=== PATIENT | male | born 1985 | race Caucasian/White ===

== ENCOUNTER 2020-11-03 08:13 | Day surgery (SDC) | payer OTHER ==
[2020-11-01 15:51] VITALS: BMI 28.7
[~2020-11-03 08:13] MED LIST: LACTATED RINGERS 1,000 ML IV SCH
[2020-11-03 08:44] VITALS: TEMP 97.8
[2020-11-03] MEDS ORDERED: LACTATED RINGERS 1,000 ML IV ONE (08:44)
[2020-11-03] MEDS ORDERED: PROPOFOL 10 MG/ML 20 ML VIAL IV ONE (08:58)
[2020-11-03] MEDS ORDERED: GLUCAGON 1 MG/ML VIAL ONE (08:58)
--- NOTE | 2020-11-03 09:03 | P.GSHP ---
History of Present Illness H&P Date: 11/03/20 Chief Complaint: Diarrhea Is a 35-year-old male who presents today for colonoscopy. Patient issues with diarrhea. States he has a 29 bowel movements per day. Past Medical History Past Medical History: Hyperlipidemia Additional Past Medical History / Comment(s): FREQ DIARRHEA FOR PAST FEW MONTHS History of Any Multi-Drug Resistant Organisms: None Reported Past Surgical History: Appendectomy, Orthopedic Surgery Additional Past Surgical History / Comment(s): LT ACL REPAIR Past Anesthesia/Blood Transfusion Reactions: No Reported Reaction Smoking Status: Vaper - Past Family History Mother Family Medical History: No Reported History Medications and Allergies Home Medications Medication Instructions Recorded Confirmed Type Atorvastatin [Lipitor] 10 mg PO HS 11/01/20 11/01/20 History Cholecalciferol [Vitamin D3 (25 25 mcg PO DAILY 11/01/20 11/01/20 History Mcg = 1000 Iu)] Allergies Allergy/AdvReac Type Severity Reaction Status Date / Time No Known Allergies Allergy Verified 11/01/20 15:42 Surgical - Exam Vital Signs Temp Pulse Resp BP Pulse Ox 97.8 F 71 18 133/79 97 11/03/20 08:43 11/03/20 08:43 11/03/20 08:43 11/03/20 08:43 11/03/20 08:43 - General well developed, well nourished, no distress - Eyes PERRL - ENT normal pinna - Neck no masses - Respiratory normal expansion - Cardiovascular Rhythm: regular - Abdomen Abdomen: soft, non tender Assessment and Plan Assessment: Diarrhea. We'll perform colonoscopy.
--- NOTE | 2020-11-03 09:18 | P.OP ---
Date of Procedure: 11/03/20 Preoperative Diagnosis: Diarrhea Postoperative Diagnosis: Colitis pathology pending Procedure(s) Performed: Colonoscopy Anesthesia: MAC Surgeon: Gerardo Donovan Pathology: other (Rectum) Condition: stable Disposition: PACU Description of Procedure: The patient was placed on the endoscopy table in the lateral position. He received IV sedation. Digital rectal exam was performed which revealed milligrams reflux" was then placed patient anus passed rotator entire colon. Ileocecal valve was visually. The cecum, ascending and transverse colon appeared normal. In the descending; there is no abdomen was seen. Scope was then brought back the rectum and this appeared normal however due the patient's symptoms of diarrhea a random rectal biopsies performed. Scope was withdrawn for patient.
[2020-11-03 09:25] VITALS: RESP 16
[2020-11-03 09:53] VITALS: BP 123/78; PULSE 67
== END 2020-11-03 10:02 | disposition home or self-care (01) ==
LOC: ORWHC2ENDO 08:13
PROVIDERS: ATTEND Surgery
DX: R19.7 Diarrhea, unspecified (principal); E78.5 Hyperlipidemia, unspecified; Z90.89 Acquired absence of other organs; Z98.890 Other specified postprocedural states; F17.290 Nicotine dependence, other tobacco product, uncomplicated; Z79.899 Other long term (current) drug therapy
CPT/HCPCS: 88305; 45380; J1610; J2704

== ENCOUNTER → 2021-06-06 | Outpatient (CLI) | payer BC ==
--- NOTE | 2021-06-06 16:07 | CT ---
EXAMINATION TYPE: CT angio chest DATE OF EXAM: 06/06/2021 COMPARISON: Radiographs 05/29/2021 HISTORY: 35-year-old male SOB, chest tightness TECHNIQUE: Contiguous axial scanning of the chest performed with IV Contrast, patient injected with 8 0 mL of Isovue 370. Coronal/sagittal MIP reconstructions performed. CT DLP: 409.2 mGycm Automated exposure control for dose reduction was used. FINDINGS: Heart normal size without pericardial effusion. No flattening of the interventricular septum or reflu x of contrast into the hepatic veins. Aorta normal caliber with bovine configuration to the aortic arch. No thoracic lymphadenopathy by CT size criteria. There is suboptimal contrast bolus with pulmonary artery density of only 206 Hounsfield units. Within this limitation, no definite pulmonary embolism is seen. Nonspecific 4 mm subpleural pulmonary nodule within the lingula, axial image 79. No consolidation or pleural effusion. Prominent ingested debris within the stomach. There may be a tiny hiatal hernia. Bones: Suggestion of mild degenerative disc disease mid to lower thoracic spine. IMPRESSION: 1. SUBOPTIMAL CONTRAST BOLUS. WITHIN THIS LIMITATION, NO DEFINITE PULMONARY EMBOLUS. 2. NO ACUTE PULMONARY PROCESS SEEN. 3. A NONSPECIFIC 4 MM PULMONARY NODULE WITHIN THE LINGULA. QUESTIONABLE CLINICAL SIGNIFICANCE. 12 MON TH FOLLOW-UP CT TO REASSESS IF THE PATIENT IS A SMOKER.
== END | disposition home or self-care (01) ==
LOC: RADCTMAIN 15:05
PROVIDERS: ATTEND Family Medicine
DX: R91.1 Solitary pulmonary nodule (principal); I26.90 Septic pulmonary embolism without acute cor pulmonale
CPT/HCPCS: 71275; Q9967